=== PATIENT | female | born 1955 | race Caucasian/White ===

== ENCOUNTER 2019-12-06 10:40 | Inpatient (IN) | payer OTHER ==
[~2019-12-06] VITALS: Ht 157.5 cm; Wt 61.1 kg
[2019-12-06] MEDS ORDERED: KETOROLAC TROMETH 30 MG/ML 1ML VIAL IV ONE (11:00)
[2019-12-06 11:02] LABS: Basophils # (auto) 0 10 ^3/uL (0-0.2); Basophils % (auto) 0.4 % (0.0-2.0); Eosinophils # (auto) 0 10 ^3/uL (0-0.8); Eosinophils % (auto) 0.2 % (0.0-7.0); Hematocrit 44.7 % (36.0-46.0); Lymphocytes # (auto) 1.7 10 ^3/uL (0.4-5.4); Lymphocytes % (auto) 14.3 % (10.0-50.0); Mean Corpuscular Hemoglobin 32.5 pg (28.0-32.0); Mean Corpuscular Hgb Conc. 33.6 g/dL (32.0-36.0); Mean Corpuscular Volume 96.7 fL (80.0-100.0); Monocytes # (auto) 0.9 10 ^3/uL (0-1.3); Monocytes % (auto) 7.8 % (0.0-12.0); Neutrophils % (auto) 77.3 % (37.0-80.0); Platelet Count (auto) 261 10^3/uL (140-450); Red Blood Cells 4.62 10^6/uL (4.0-5.20); Red Cell Distribution Width 13.4 % (11.8-14.3); White Blood Cell 11.6 10^3/uL (4.4-10.8)
[2019-12-06 11:31] LABS: Albumin 3.2 g/dL (3.4-5.0); Calcium 9.2 mg/dL (8.5-10.1); Potassium 4.4 mmol/L (3.5-5.1)
[2019-12-06 11:36] LABS: BUN/Creatinine Ratio 9.4; Bilirubin, Total 0.7 mg/dL (0.2-1.0); Total Protein 7.7 g/dL (6.4-8.2)
[2019-12-06] MEDS ORDERED: IOHEXOL 300 MG/ML 100ML BOTTLE IJ ONE (12:56)
[2019-12-06] MEDS ORDERED: GADOTERIDOL 279.3mg/mL 20ml Vial IV ONE (13:55)
[2019-12-06] MEDS ORDERED: ENOXAPARIN SOD 100 MG/1 ML SYRINGE SC ONE (14:00)
[2019-12-06] MEDS: SODIUM CHLORIDE 0.9% 1,000 ML IV SCH (15:58)
[2019-12-06] MEDS ORDERED: ALUM & MAG HYDROX-SIMETH LIQ(MAALOX) 30 ML PO PRN (16:00)
[2019-12-06] MEDS ORDERED: NITROGLYCERIN 0.4 MG SL TAB SL PRN (16:00)
[2019-12-06] MEDS ORDERED: LORazepam 0.5 MG TAB PO PRN (16:00)
[2019-12-06] MEDS ORDERED: DOCUSATE SOD 100 MG CAP PO PRN (16:00)
[2019-12-06] MEDS ORDERED: MORPHINE SULF INJ 2 MG/ML SYRINGE 1ML IV PRN ×2 (16:00)
[2019-12-06] MEDS ORDERED: ONDANSETRON HCL 4 MG/2 ML VIAL IV PRN (16:00)
[2019-12-06 16:29] LABS: Cholesterol 162 mg/dL (< 200); HDL Cholesterol 69 mg/dL (40-59); LDL Cholesterol 77 mg/dL (< 100); Triglycerides 126 mg/dL (< 150)
[2019-12-06 18:20] VITALS: BP 119/86
--- NOTE | 2019-12-06 18:20 | NUR ---
Telemetry admit from ER AREN BROWN admitted to Telemetry unit after SBAR received. Patient oriented to VENANCIO jovel RN, unit, room 294B and unit policies regarding patient care and visiting hours. Patient now on continuous telemetry monitoring, tele box # 91 and telemetry reading on arrival to unit is normal sinus rhythm 88. Patient weighed by bedscale and encouraged to call if they need something. All questions and concerns addressed, patient verbalized understanding.
--- NOTE | 2019-12-06 19:18 | NUR ---
Opening Shift Note Assumed care of patient, awake, alert and oriented x4, on room air with even and unlabored respirations, no S/S of distress/SOB or pain. Patient able to ambulate independently, bed in lowest locked position, side rails up x2, and call light within reach. Instructed on POC and to call for assist PRN, will continue to monitor for changes Q1hr and PRN.
[2019-12-06] MEDS: ENOXAPARIN SOD 60 MG/0.6 ML SYRINGE SC SCH (21:50)
[2019-12-06] MEDS: ACETAMINOPHEN 325 MG TAB PO PRN (22:19)
[2019-12-06 23:33] VITALS: BP 112/73
[2019-12-07] MEDS ORDERED: CLINDAMYCIN 600MG IV 50 ML IV ONE (01:00)
[2019-12-07] MEDS: HYDROcodone-ACET 5/325MG TAB PO PRN ×3 (03:46→22:56)
[2019-12-07 05:27] VITALS: BP 113/74
[2019-12-07 06:06] LABS: Basophils # (auto) 0 10 ^3/uL (0-0.2); Basophils % (auto) 0.4 % (0.0-2.0); Eosinophils # (auto) 0.1 10 ^3/uL (0-0.8); Eosinophils % (auto) 0.8 % (0.0-7.0); Hemoglobin 13.1 g/dL (12.2-16.2); Lymphocytes # (auto) 1.7 10 ^3/uL (0.4-5.4); Lymphocytes % (auto) 21.3 % (10.0-50.0); Mean Corpuscular Hemoglobin 32.4 pg (28.0-32.0); Mean Corpuscular Hgb Conc. 33.6 g/dL (32.0-36.0); Mean Corpuscular Volume 96.4 fL (80.0-100.0); Monocytes # (auto) 0.7 10 ^3/uL (0-1.3); Monocytes % (auto) 8.1 % (0.0-12.0); Neutrophils # (auto) 5.6 10 ^3/uL (1.6-8.6); Neutrophils % (auto) 69.4 % (37.0-80.0); Platelet Count (auto) 236 10^3/uL (140-450); Red Blood Cells 4.04 10^6/uL (4.0-5.20); Red Cell Distribution Width 13.6 % (11.8-14.3); White Blood Cell 8.1 10^3/uL (4.4-10.8)
[2019-12-07] MEDS: CLINDAMYCIN 600MG IV 50 ML IV SCH ×3 (06:19→22:54)
[2019-12-07 06:23] LABS: Albumin 2.6 g/dL (3.4-5.0); Calcium 8.9 mg/dL (8.5-10.1); Magnesium 2.6 mg/dL (1.6-2.6); Potassium 4.2 mmol/L (3.5-5.1)
[2019-12-07 06:27] LABS: INR 1.02 (0.9-1.15); Partial Thromboplastin Time 32.5 sec (23.64-32.05)
[2019-12-07 06:28] LABS: BUN/Creatinine Ratio 11.7; Bilirubin, Total 0.4 mg/dL (0.2-1.0); Phosphorus 4.7 mg/dL (2.5-4.90); Total Protein 6.6 g/dL (6.4-8.2)
[2019-12-07 09:33] VITALS: BP 117/80
[2019-12-07] MEDS ORDERED: AZITHROMYCIN 500MG/ 250ML 250 ML IV SCH (10:00)
[2019-12-07] MEDS: cefTRIAXone 1GM/50ML D5W 50 ML IV SCH (10:05)
[2019-12-07] MEDS: ENOXAPARIN SOD 60 MG/0.6 ML SYRINGE SC SCH ×2 (10:06→22:54)
[2019-12-07] MEDS: ASPirin 81 mg TAB PO SCH (10:07)
[2019-12-07 10:46] LABS: Urine Bacteria NONE SEEN /hpf (None Seen); Urine Blood Negative /uL (Negative); Urine Mucus FEW (None Seen); Urine Specific Gravity 1.011 (1.001-1.035); Urine WBC 1 /hpf (0 - 5)
[2019-12-07] MEDS: SODIUM CHLORIDE 0.9% 1,000 ML IV SCH (11:07)
[2019-12-07 11:09] LABS: Alcohol, Urine < 3.0 mg/dL (0-10); Amphetamine Screen, Urine NEGATIVE (NEGATIVE); Barbiturate Scree,Urine NEGATIVE (NEGATIVE); Benzodiazephine Screen, Urine NEGATIVE (NEGATIVE); Cocaine Screen, Urine NEGATIVE (NEGATIVE); Opiate Scree,Urine NEGATIVE (NEGATIVE); Phencyclidine Screen, Urine NEGATIVE (NEGATIVE)
[2019-12-07 11:17] LABS: Cannabinoid Screen, Urine POSITIVE (NEGATIVE)
[2019-12-07 12:57] VITALS: BP 118/70
[2019-12-07 16:31] VITALS: BP 116/72
[2019-12-07] MEDS: ACETAMINOPHEN 325 MG TAB PO PRN (17:43)
--- NOTE | 2019-12-07 17:43 | NUR ---
Increased temp. Cooling measures started and medicated with tylenol as ordered. Will cont to monitor. No distress or sob noted at this time.
--- NOTE | 2019-12-07 18:43 | NUR ---
Temp decreased to 99.6, cooling measures continued. No distress or sob noted.
--- NOTE | 2019-12-07 19:00 | NUR ---
Patient care endorsed to [facility]. Patient walking in room no acute distress or sob instructed to call for assist as needed.
[2019-12-07 22:00] VITALS: BP 133/71
[2019-12-07] MEDS ORDERED: ATORVASTATIN 20 MG TAB PO SCH (22:00)
[2019-12-08] MEDS: SODIUM CHLORIDE 0.9% 1,000 ML IV SCH ×2 (01:08→17:48)
[2019-12-08 05:00] VITALS: BP 113/75
[2019-12-08 05:58] LABS: Basophils # (auto) 0 10 ^3/uL (0-0.2); Basophils % (auto) 0.4 % (0.0-2.0); Eosinophils # (auto) 0.1 10 ^3/uL (0-0.8); Eosinophils % (auto) 0.7 % (0.0-7.0); Hematocrit 43.4 % (36.0-46.0); Hemoglobin 14.4 g/dL (12.2-16.2); Lymphocytes # (auto) 3.1 10 ^3/uL (0.4-5.4); Lymphocytes % (auto) 27.5 % (10.0-50.0); Mean Corpuscular Hemoglobin 32.7 pg (28.0-32.0); Mean Corpuscular Hgb Conc. 33.2 g/dL (32.0-36.0); Mean Corpuscular Volume 98.4 fL (80.0-100.0); Monocytes % (auto) 8.5 % (0.0-12.0); Neutrophils # (auto) 7.1 10 ^3/uL (1.6-8.6); Neutrophils % (auto) 62.9 % (37.0-80.0); Platelet Count (auto) 315 10^3/uL (140-450); Red Blood Cells 4.41 10^6/uL (4.0-5.20); Red Cell Distribution Width 13.6 % (11.8-14.3); White Blood Cell 11.2 10^3/uL (4.4-10.8)
[2019-12-08] MEDS: CLINDAMYCIN 600MG IV 50 ML IV SCH ×2 (06:10→14:00)
[2019-12-08 08:36] LABS: INR 0.99 (0.9-1.15); Partial Thromboplastin Time 28.7 sec (23.64-32.05)
[2019-12-08 08:53] VITALS: BP 121/72
[2019-12-08] MEDS: ENOXAPARIN SOD 60 MG/0.6 ML SYRINGE SC SCH (10:16)
[2019-12-08] MEDS: cefTRIAXone 1GM/50ML D5W 50 ML IV SCH (10:16)
[2019-12-08] MEDS: ASPirin 81 mg TAB PO SCH (10:16)
[2019-12-08] MEDS: HYDROcodone-ACET 5/325MG TAB PO PRN (10:17)
[2019-12-08] MEDS ORDERED: APIX5TAB PO (10:21)
--- NOTE | 2019-12-08 10:56 | NUR ---
Spoke to MD MD Triana aware of patient's status including increased temp. New orders received for dc home today after MRI done. Will dc as ordered.
[2019-12-08] MEDS ORDERED: GADOTERIDOL 279.3mg/mL 20ml Vial IV ONE (11:47)
--- NOTE | 2019-12-08 12:21 | NUR ---
Patient taken down to MRI
[2019-12-08 12:48] VITALS: BP 116/78
[2019-12-08 17:21] VITALS: BP 125/78
--- NOTE | 2019-12-08 19:00 | NUR ---
Discharge instructions given as ordered. Encourage to follow up with PMD and specialists as instructed. All questions and concerns addressed. Patient verbalized understanding. Medication reconciliation form completed and copy given to patient. Eliquis delivered to bedside and patient instructed on use, s/s, s/e she verbalized understanding. IV removed with catheter intact, pressure dressing applied. Telemetry unit returned to ICU. Patient taken to vehicle via wheelchair with all personal belongings, accompanied by staff and family member. No distress noted at time of departure sob or pain.
== END 2019-12-08 19:01 | disposition home or self-care (01) | DRG 299 ==
LOC: ER 10:40 → TELE 10:41 → TELE-WESTW 18:20
PROVIDERS: ADMIT Hospitalist; ATTEND Hospitalist
DX: I82.412 Acute embolism and thrombosis of left femoral vein (principal); I26.99 Other pulmonary embolism without acute cor pulmonale; D68.59 Other primary thrombophilia; E44.0 Moderate protein-calorie malnutrition; I82.422 Acute embolism and thrombosis of left iliac vein; R59.1 Generalized enlarged lymph nodes; D72.829 Elevated white blood cell count, unspecified; K57.30 Diverticulosis of large intestine without perforation or abscess without bleeding; E78.00 Pure hypercholesterolemia, unspecified; C54.1 Malignant neoplasm of endometrium; N73.9 Female pelvic inflammatory disease, unspecified; F17.210 Nicotine dependence, cigarettes, uncomplicated; E78.5 Hyperlipidemia, unspecified; D25.9 Leiomyoma of uterus, unspecified; Z98.82 Breast implant status; Z80.0 Family history of malignant neoplasm of digestive organs; Z79.899 Other long term (current) drug therapy; Z68.23 Body mass index [BMI] 23.0-23.9, adult; J44.9 Chronic obstructive pulmonary disease, unspecified
CPT/HCPCS: 36415; 36600; 72195; 74177; 74183; 80053; 80061; 80307; 81001; 82378; 82805; 83036; 83615; 83735; 84100; 84484; 85025; 85610; 85730; 86301; 86304; 87040; 87086; 93971; 96361; 96372; 96374; G0378; J0696; J1885; J3490

== ENCOUNTER 2020-10-06 16:24 | Inpatient (IN) | payer OTHER ==
[~2020-10-06] VITALS: Ht 157.5 cm; Wt 56.6 kg
[~2020-10-06 16:24] MED LIST: APIX5TAB PO
[2020-10-06] MEDS ORDERED: ONDANSETRON HCL 4 MG/2 ML VIAL IV ONE (16:45)
[2020-10-06] MEDS ORDERED: ONDANSETRON HCL 4 MG/2 ML VIAL ONE (16:53)
[2020-10-06] MEDS ORDERED: SODIUM CHLORIDE 0.9% 1,000 ML IVB ONE (17:00)
[2020-10-06] MEDS ORDERED: PROMETHAZINE HCL 25 MG/ML 1ML IV ONE (17:45)
[2020-10-06] MEDS ORDERED: MORPHINE SULFATE INJECTION 2 MG/ML SYRG IV ONE (17:45)
[2020-10-06 18:24] LABS: Basophils # (auto) 0 10 ^3/uL (0-0.2); Basophils % (auto) 0.3 % (0.0-2.0); Eosinophils # (auto) 0 10 ^3/uL (0-0.8); Hematocrit 44.2 % (36.0-46.0); Hemoglobin 15.1 g/dL (12.2-16.2); Lymphocytes # (auto) 0.9 10 ^3/uL (0.4-5.4); Lymphocytes % (auto) 8.1 % (10.0-50.0); Mean Corpuscular Hemoglobin 31.7 pg (28.0-32.0); Mean Corpuscular Hgb Conc. 34.1 g/dL (32.0-36.0); Mean Corpuscular Volume 92.8 fL (80.0-100.0); Monocytes # (auto) 0.2 10 ^3/uL (0-1.3); Monocytes % (auto) 2.3 % (0.0-12.0); Neutrophils # (auto) 9.4 10 ^3/uL (1.6-8.6); Neutrophils % (auto) 89.3 % (37.0-80.0); Red Blood Cells 4.77 10^6/uL (4.0-5.20); Red Cell Distribution Width 14.5 % (11.8-14.3); White Blood Cell 10.6 10^3/uL (4.4-10.8)
[2020-10-06 18:36] LABS: Chloride 101 mmol/L (98-107); Potassium 4.2 mmol/L (3.5-5.1); Sodium 138 mmol/L (136-145)
[2020-10-06 18:46] LABS: Alanine Aminotransferase 21 U/L (13-56); Albumin 3.9 g/dL (3.4-5.0); Alkaline Phosphatase 84 U/L (45-117); Anion Gap 16 (5-15); Aspartate Aminotransferase 46 U/L (15-37); BUN/Creatinine Ratio 14.4; Blood Urea Nitrogen 15 mg/dL (7-18); Calcium 9.5 mg/dL (8.5-10.1); Carbon Dioxide 21 mmol/L (21-32); GFR African American 69 mL/min; GFR Non-African American 57 mL/min; Glucose 77 mg/dL (74-106); Total Protein 7.6 g/dL (6.4-8.2)
[2020-10-06 18:49] LABS: Partial Thromboplastin Time 24.8 sec (23.0-31.2)
[2020-10-06 19:42] LABS: Urine WBC None Seen /hpf (0 - 5)
[2020-10-06 20:18] LABS: Urine Bacteria NONE SEEN /hpf (None Seen); Urine Blood Negative /uL (Negative)
[2020-10-06] MEDS ORDERED: NITROGLYCERIN 0.4 MG SL TAB SL PRN (20:30)
[2020-10-06] MEDS ORDERED: LABETALOL HCL 5 MG/ML 4ML SYRINGE IV PRN (20:30)
[2020-10-06] MEDS ORDERED: HYDROmorphone HCL 2 MG/ML VL IV PRN (20:30)
[2020-10-06] MEDS: SODIUM CHLORIDE 0.9% 1,000 ML IV SCH (20:46)
[2020-10-06] MEDS: ONDANSETRON HCL 4 MG/2 ML VIAL IV PRN (21:07)
[2020-10-06] MEDS ORDERED: TRAM50TA2 PO (23:12)
[2020-10-06 23:13] VITALS: BP 141/86
[2020-10-07] MEDS ORDERED: PROMETHAZINE HCL 25 MG/ML 1ML IV ONE (01:00)
[2020-10-07] MEDS: ONDANSETRON HCL 4 MG/2 ML VIAL IV PRN (04:24)
[2020-10-07 05:00] VITALS: BP 131/77
[2020-10-07] MEDS: SODIUM CHLORIDE 0.9% 1,000 ML IV SCH ×3 (06:00→16:42)
[2020-10-07 06:24] LABS: Basophils # (auto) 0 10 ^3/uL (0-0.2); Basophils % (auto) 0.3 % (0.0-2.0); Eosinophils # (auto) 0 10 ^3/uL (0-0.8); Hematocrit 40.3 % (36.0-46.0); Hemoglobin 13.8 g/dL (12.2-16.2); Lymphocytes % (auto) 9.9 % (10.0-50.0); Mean Corpuscular Hemoglobin 31.9 pg (28.0-32.0); Mean Corpuscular Hgb Conc. 34.3 g/dL (32.0-36.0); Mean Corpuscular Volume 92.9 fL (80.0-100.0); Monocytes # (auto) 0.3 10 ^3/uL (0-1.3); Monocytes % (auto) 3.3 % (0.0-12.0); Neutrophils # (auto) 8.3 10 ^3/uL (1.6-8.6); Neutrophils % (auto) 86.5 % (37.0-80.0); Nucleated Red Blood Cells % 0.1 %; Red Blood Cells 4.34 10^6/uL (4.0-5.20); Red Cell Distribution Width 14.2 % (11.8-14.3); White Blood Cell 9.6 10^3/uL (4.4-10.8)
[2020-10-07 07:04] LABS: Albumin 3.3 g/dL (3.4-5.0); BUN/Creatinine Ratio 12.1; Bilirubin, Total 0.8 mg/dL (0.2-1.0); Calcium 8.4 mg/dL (8.5-10.1); Total Protein 6.8 g/dL (6.4-8.2)
[2020-10-07 08:59] VITALS: BP 156/82
[2020-10-07] MEDS: ENOXAPARIN SOD 40 MG/0.4 ML SYRINGE SC SCH (10:56)
[2020-10-07] MEDS: PANTOPRAZOLE 40 MG/10 ML VIAL INJ IV SCH (10:58)
[2020-10-07] MEDS: PROMETHAZINE HCL 25 MG/ML 1ML IV PRN ×3 (10:59→20:57)
[2020-10-07 13:00] VITALS: BP 146/85
[2020-10-07] MEDS: HYDROcodone-ACET 10/325MG TAB PO PRN (16:41)
[2020-10-07 16:44] VITALS: BP 149/89
[2020-10-07] MEDS: HYDROmorphone HCL 2 MG/ML VL IV PRN ×2 (17:00→21:07)
[2020-10-07 22:00] VITALS: BP 145/79
[2020-10-07] MEDS: MORPHINE SULF 30 mg ER tab PO SCH (22:00)
[2020-10-08] MEDS: SODIUM CHLORIDE 0.9% 1,000 ML IV SCH ×4 (00:09→20:05)
[2020-10-08] MEDS: HYDROcodone-ACET 10/325MG TAB PO PRN ×2 (00:29→01:24)
[2020-10-08] MEDS: PROMETHAZINE HCL 25 MG/ML 1ML IV PRN ×4 (01:15→15:25)
[2020-10-08 05:00] VITALS: BP 131/92
[2020-10-08] MEDS: HYDROmorphone HCL 2 MG/ML VL IV PRN ×4 (05:36→21:07)
[2020-10-08 08:13] VITALS: BP 149/93
[2020-10-08] MEDS: PANTOPRAZOLE 40 MG/10 ML VIAL INJ IV SCH (09:24)
[2020-10-08] MEDS: ENOXAPARIN SOD 40 MG/0.4 ML SYRINGE SC SCH (09:25)
[2020-10-08] MEDS: MORPHINE SULF 30 mg ER tab PO SCH ×2 (09:25→22:59)
[2020-10-08] MEDS ORDERED: HYDROmorphone HCL 2 MG/ML VL IV PRN (10:45)
[2020-10-08] MEDS ORDERED: PROCHLORPERAZINE MALEATE 10 MG TAB PO PRN (10:45)
[2020-10-08] MEDS ORDERED: ONDANSETRON HCL 4 MG/2 ML VIAL IV PRN ×2 (10:45→11:15)
[2020-10-08] MEDS: PROCHLORPERAZINE MALEATE 10 MG TAB PO PRN ×2 (11:32→21:07)
[2020-10-08 12:43] VITALS: BP 146/88
[2020-10-08 16:33] VITALS: BP 138/85
[2020-10-08 21:07] VITALS: BP 136/72
[2020-10-09] MEDS: SODIUM CHLORIDE 0.9% 1,000 ML IV SCH ×3 (03:11→16:05)
[2020-10-09 05:00] VITALS: BP 133/76
[2020-10-09 08:39] VITALS: BP 129/81
[2020-10-09] MEDS: PANTOPRAZOLE 40 MG/10 ML VIAL INJ IV SCH (09:35)
[2020-10-09] MEDS: MORPHINE SULF 30 mg ER tab PO SCH ×2 (09:36→21:41)
[2020-10-09] MEDS: ENOXAPARIN SOD 40 MG/0.4 ML SYRINGE SC SCH (09:36)
[2020-10-09] MEDS ORDERED: GADOTERATE MEG 7.5 MMOL/15ml INJ (0.5MMOL/ml) IV ONE (10:56)
[2020-10-09 12:30] VITALS: BP 125/65
[2020-10-09 16:41] VITALS: BP 16/59
[2020-10-09] MEDS: HYDROcodone-ACET 10/325MG TAB PO PRN (17:31)
[2020-10-09] MEDS ORDERED: ACETAMINOPHEN 325 MG TAB PO PRN (19:15)
[2020-10-09 21:50] VITALS: BP 131/74
[2020-10-10 05:00] VITALS: BP 133/78
[2020-10-10] MEDS: SODIUM CHLORIDE 0.9% 1,000 ML IV SCH ×3 (05:25→12:05)
[2020-10-10] MEDS: HYDROcodone-ACET 10/325MG TAB PO PRN (05:42)
[2020-10-10 09:07] VITALS: BP 120/69
[2020-10-10] MEDS: PROMETHAZINE HCL 25 MG/ML 1ML IV PRN (09:43)
[2020-10-10] MEDS: PANTOPRAZOLE 40 MG/10 ML VIAL INJ IV SCH (09:43)
[2020-10-10] MEDS: ENOXAPARIN SOD 40 MG/0.4 ML SYRINGE SC SCH (09:48)
[2020-10-10] MEDS: MORPHINE SULF 30 mg ER tab PO SCH (10:49)
[2020-10-10 12:30] VITALS: BP 116/73
[2020-10-10 14:25] LABS: BUN/Creatinine Ratio 12.8; Calcium 8.5 mg/dL (8.5-10.1); Potassium 3.9 mmol/L (3.5-5.1)
[2020-10-10] MEDS: HYDROmorphone HCL 2 MG/ML VL IV PRN (15:24)
[2020-10-10 15:33] VITALS: BP 116/73
[2020-10-10] MEDS: PROCHLORPERAZINE MALEATE 10 MG TAB PO PRN (16:10)
== END 2020-10-10 17:05 | disposition hospice, home (50) | DRG 755 ==
LOC: ER 16:24 → EDBD 16:24 → TELE-CENTR 20:29
PROVIDERS: ADMIT Family Medicine; ATTEND Internal Medicine
DX: C54.1 Malignant neoplasm of endometrium (principal); C79.51 Secondary malignant neoplasm of bone; N13.30 Unspecified hydronephrosis; I82.502 Chronic embolism and thrombosis of unspecified deep veins of left lower extremity; E86.0 Dehydration; Z51.5 Encounter for palliative care; Z85.42 Personal history of malignant neoplasm of other parts of uterus; Z85.841 Personal history of malignant neoplasm of brain; Z86.711 Personal history of pulmonary embolism; Z86.718 Personal history of other venous thrombosis and embolism; Z95.828 Presence of other vascular implants and grafts; Z87.891 Personal history of nicotine dependence; Z90.710 Acquired absence of both cervix and uterus; M54.5 Low back pain; Z79.01 Long term (current) use of anticoagulants; Z20.822 Contact with and (suspected) exposure to COVID-19; Z90.722 Acquired absence of ovaries, bilateral; N28.9 Disorder of kidney and ureter, unspecified
CPT/HCPCS: 36415; 71045; 72158; 74176; 78582; 80048; 80053; 81001; 83735; 84443; 84484; 85025; 85379; 85610; 85730; 87426; 93005; 93970; 96361; 96374; 96375; C9113; G0378; J2405; Q0164